=== PATIENT | male | born 1990 | race Caucasian/White ===

== ENCOUNTER 2025-04-27 02:57 | Emergency (ER) | payer OTHER, SELFPAY ==
--- OUTSIDE RECORDS SUMMARY | 2025-04-27 03:00 | XMS_ITS ---
Author Organization [facility] [place] ([address]) Address [address] [place] [address] Care Team Providers Care Electrical Integrator Name Role Phone Emely Batista Primary Care Provider Amanda Loja Unavailable [phone] REASON FOR VISIT Recurrent episodes of hives, nausea, diarrhea since 12/2023. Alpha Gal panel negative. Triple therapy initiated one month ago with no interval episodes. Now carries AIE at all times., Nasal congestionx 1 month causing shortness of breath. Patient reports prior cold. Improved as of today. Medications Medication SIG (Take, Route, Frequency, Duration) Notes Start Date End Date Status Fluticasone Propionate 50 MCG/ACT 2 sprays in each nostril Nasally Twice a day for 30 days Active Montelukast Sodium 10 MG 1 tablet Orally Once a day for 90 days Active Famotidine 20 MG 1 tablet Orally Twic e a day for 30 days Active EPINEPHrine 0.3 MG/0.3ML as directed Inj ection as needed for 30 days Active Mariella Hives 24HR 180 MG 1 tablet Swall ow whole with water; do not take with fruit juices. Orally twice a day Active EPINEPHrine 0.3 MG/0.3ML as directed Injection Active Nasal Washes N/A as directed intranasally Active Encounters Encounter Location Date Provider Diagnosis [facility] [address] [place] [address] 01/19/2025 Amanda Carmona Other urticaria L50.8 ; Personal history of anaphylaxis Z87.892 ; Diarrhea, unspecified R19.7 ; Localized swelling, mass and lump, head R22.0 ; Shortness of breath R06.02 ; Hypertrophy of nasal turbinates J34.3 and Chronic rhinitis J31.0 Assessments Encounter Date Diagnosis (ICD Code) Assessment Notes Treatment Notes Treatment Clinical Notes Section Notes 01/19/2025 Other urticaria (ICD-10 - L50.8) As stated above. Encouraged to avoid NSAIDs, alcohol and opioids as these can exacerbate symptoms. 01/19/2025 Personal history of anaphylaxis (ICD-10 - Z87.892) Geo presents today to establish care after episodes of anaphylaxis without clear cause, see HPI for full details. He has been having ongoing episodes of hives, nausea and diarrhea occurring in the evening and late at night since 12/2023. He reports episodes of facial swelling, no pictures available. He denies lower airway symptoms during episodes. Last episode was this past Friday. He was evaluated by his PCP, LORAINE Batista, given AIE and was told to follow-up at our office. He has never used AIE, treats episodes with Benadryl. No prior history of similar symptoms. He does report known tick bite in past. He denies associated-exercis e. Triple therapy initiated after last visit with no interval episodes at this time. 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 These autoantibodies have been implicated as a causative agent in autoimmune chronic urticaria and atopic dermatitis. Additional laboratory workup for thyroid has yet to be obtained. Consider idiopathic anaphylaxis at this time given negative alpha gal panel. - Normal tryptase, Alpha Gal Panel, CBC, CMP, RF factor, DARIA. He has since resumed red meat intake without interval episodes. - Geo was instructed to carry an AIE at all times. He was educated on indications and proper use. Instructed Denton to carry AIE at all times and administer at the onset of symptoms. He was instructed to notify office and seek evaluation if AIE is used. Standing order for tryptase given to patient to obtain in setting of anaphylaxis. - ImmunoCaps to assess for underlying atopic disease that may be priming Geo's immune system, negative to all aeroallergens. - Recommend continuing triple medication therapy with Mariella and Pepcid BID and Singulair at night in attempt to prevent symptoms from occurring. Refills for Singulair sent. - Discussed with Dr. Cruz at length. Recommend standing order for tryptase and Xolair. Discussed Xolair at length with patient, but he is not interested at this time. Educational handout given and he will continue to consider. - Encouraged to continue to take pictures and journal for triggers. - Geo is to return in 6 weeks further evaluation and management 01/19/2025 Diarrhea, unspecified (ICD-10 - R19.7) As stated above. Today, reporting his stomach feels more upset when nighttime dose of Pepcid is due. Encouraged GI evaluation, which he is slated for in January. 01/19/2025 Localized swelling, mass and lump, head (ICD-10 - R22.0) As stated above. 01/19/2025 Shortness of breath (ICD-10 - R06.02) Geo reports occasional shortness of breath without exertion, worsened with nasal congestion. He reports symptoms have improved at this time. He is concerned for sleep apnea as he snores nightly. He also feels he gasps for air. - Initial spirometry showed normal FVC, FEV1, FEV%. FVL reproducible. Normal lung age. - Continue Flonase for nasal congestion as stated below. - Recommend sleep study, per girlfriend he is scheduled to discuss with PCP at upcoming visit. - Consider ALLEGRA if no improvement at follow-up. 01/19/2025 Hypertrophy of nasal turbinates (ICD-10 - J34.3) Geo reports increased nasal congestion over the past month, otherwise denies all upper airway symptoms. - ImmunoCaps ordered to assess for underlying atopic disease that may be priming Geo's immune system, negative to all aeroallergens. Total IgE 64. 01/19/2025 Chronic rhinitis (ICD-10 - J31.0) As stated above. 01/19/2025 Other Plan Of Treatment Medication Medication Name Sig Start Date Stop Date Notes Fluticasone Propionate 50 MCG/ACT 2 sprays in each nostril Nasally Twice a day for 30 days Montelukast Sodium 10 MG 1 tablet Orally Once a day for 90 days Famotidine 20 MG 1 tablet Orally Twic e a day for 30 days EPINEPHrine 0.3 MG/0.3ML as directed Inj ection as needed for 30 days Mariella Hives 24HR 180 MG 1 tablet Swall ow whole with water; do not take with fruit juices. Orally twice a day Nasal Washes N/A as directed intranasally Treatment Notes Assessment Notes Other urticaria As stated above. Enc ouraged to avoid NSAIDs, alcohol and opioids as these can exacerbate symptoms. Personal history of anaphylaxis Geo presents today to establish care after episodes of anaphylaxis without clear cause, see HPI for full details. He has been having ongoing episodes of hives, nausea and diarrhea occurring in the evening and late at night since 12/2023. He reports episodes of facial swelling, no pictures available. He denies lower airway symptoms during episodes. Last episode was this past Friday. He was evaluated by his PCP, LORAINE Batista, given AIE and was told to follow-up at our office. He has never used AIE, treats episodes with Benadryl. No prior history of similar symptoms. He does report known tick bite in past. He denies associated-exercise. Triple therapy initiated after last visit with no interval episodes at this time. 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 These autoantibodies have been implicated as a causative agent in autoimmune chronic urticaria and atopic dermatitis. Additional laboratory workup for thyroid has yet to be obtained. Consider idiopathic anaphylaxis at this time given negative alpha gal panel. - Normal tryptase, Alpha Gal Panel, CBC, CMP, RF factor, DARIA. He has since resumed red meat intake without interval episodes. - Geo was instructed to carry an AIE at all times. He was educated on indications and proper use. Instructed Geo to carry AIE at all times and administer at the onset of symptoms. He was instructed to notify office and seek evaluation if AIE is used. Standing order for tryptase given to patient to obtain in setting of anaphylaxis. - ImmunoCaps to assess for underlying atopic disease that may be priming Geo's immune system, negative to all aeroallergens. - Recommend continuing triple medication therapy with Mariella and Pepcid BID and Singulair at night in attempt to prevent symptoms from occurring. Refills for Singulair sent. - Discussed with Dr. Cruz at length. Recommend standing order for tryptase and Xolair. Discussed Xolair at length with patient, but he is not interested at this time. Educational handout given and he will continue to consider. - Encouraged to continue to take pictures and journal for triggers. - Geo is to return in 6 weeks further evaluation and management Diarrhea, unspecified As stated above. T moni, reporting his stomach feels more upset when nighttime dose of Pepcid is due. Encouraged GI evaluation, which he is slated for in January. Localized swelling, mass and lump, head As stated above. Shortness of breath Geo reports occasional shortness of breath without exertion, worsened with nasal congestion. He reports symptoms have improved at this time. He is concerned for sleep apnea as he snores nightly. He also feels he gasps for air. - Initial spirometry showed normal FVC, FEV1, FEV%. FVL reproducible. Normal lung age. - Continue Flonase for nasal congestion as stated below. - Recommend sleep study, per girlfriend he is scheduled to discuss with PCP at upcoming visit. - Consider ALLEGRA if no improvement at follow-up. Hypertrophy of nasal turbinates Geo reports increased nasal congestion over the past month, otherwise denies all upper airway symptoms. - ImmunoCaps ordered to assess for underlying atopic disease that may be priming Geo's immune system, negative to all aeroallergens. Total IgE 64. Chronic rhinitis As stated above. Next Appt Details Follow Up: 6 Weeks, Reason: Evaluation and Management Provider Name:Amanda oden, 06/01/2025 03:30:00 PM, [address] [facility], [address] [place] [address], [id number], Progress Notes * Geo MARIEDOB:1990 (34 yo M)Acc No.[id number]:01/19/2025 Progress Notes Patient: Geo BELTRAN Provider: AMANDA CarballoP-BC :1990 A ge:34 Y S ex:Male Date:01/19/2025 [facility] Pcp:Emely Batista Subjective: * Chief Complaints: * 1 . Recurrent episodes of hives, nausea, diarrhea since 12/2023. Alpha Gal panel negative. Triple therapy initiated one month ago with no interval episodes. Now carries AIE at all times.. 2. Nasal congestion x 1 month causing shortness of breath. Patient reports prior cold. Improved as of today.. * HPI: * Introduction: HPI: Keagan phil Marie, a 34 year-ol WM with a history of idiopathic anaphylaxis here today for anaphylaxis follow-up. He is with his girlfriend, Viola, for today's visit. Denton reports ongoing hives since 10/2023 when he was at work and noticed a rash on arm with associated itching. Symptoms resolved within 3-4 hours spontaneously. He was on a 7 day antibiotics for Chlamydia at that time. Symptoms returned in 12/2023. This time, symptoms were more severe.Within 1-2 hours of eating, he began to feel warm and has uneasy stomach then had a loose, diarrhea BM followed shortly after by generalized hives lasting approximately 3-4 hours.He also reported a little swelling in face and lips. He was treated at urgent care with steroid injection and antibiotics with improvement. Of note, he passed out after steroid injection. In 03/2024, he had vomiting and diarrhea, felt warm and had hives with associated swelling to cheeks. He took Benadryl and symptoms resolved within 3-4 hours. He was evaluated by AMBULANCE OPERATIONS SUPERVISOR Emely Fulton in 04/2024, prescribed AIE and OCS to have on hand with referral here. They have never used since symptoms resolve within 3-4 hours. Per Denton, he did not have insurance so was not previously evaluated. H param does not feel symptoms occurred in June or July 2024. But feels they are becoming more intense since August 2024 and are occurring every 3 weeks. In 09/2024, he had diarrhea and vomiting at same time and convulsed a little bit per girlfriend.He usually treats with Benadryl and all symptoms resolve within 4 hours. The alast episode of vomiting, diarrhea na dhives occurred this past Friday. At times, he started having hives before BM, but feels hives is always associated with nausea and diarrhea. He reports all episodes have occurred in the evening, around 4-6 pm. The episode occurred around 11pm and this past Friday occrrued around midnight. He has taken Mariella intermittently, started daily since 09/2024 episode as it was intense. He feels swelling happened more when he was not on Mariella. Denies swelling since 04/2024. No pictures of reported swelling. Laboratory workup after initial visit showed normal tryptase, alpha gal panel negative. Notable for thyroglobulin antibody elevation and elevated anti-IgE antibodies. Erin virgen denies recent travel, illness, parasitic infections. He reports chlamydia diagnosis in 12/2023, treated with 7 days antibiotics. Per external med rec, was treated with Azithromycin. He was asymptomatic for chlamydia, but was tested prior to dating his new girlfriend. He feels he may have had chlamydia back in October prior to symptom onset. He eats an unrestricted diet, consuming some sort of red meat daily if not multiple times throughout day. He feels he may have been bit by a tick at some point as he is outside a lot with his hobbies of four-wheeling and other recreational activitities. He reports NSAID use for back pain, approximately 3 times per month. He reports prior alcohol use of 15 beers 3 times per week, has stopped all alcohol within the past 6 months. He denies opioid use. He admits to daily marijuana use. Keagan villarreal reports increased nasal congestion over the past month, otherwise denies all upper airway symptoms. He is concerned for sleep apnea as he snores nightly. He also feels he gasps for air. He does reports occasional shortness of breath without exertion, worsened due to ongoing nasal congestion. Spireomtry at initial visit WNL. Today, reporting nasal congestion is improving. His father of non-hodgkin's lymphoma and his mother has a history of Crohn's disease.He denies a history of physician-diagnosed allergic rhinitis, recurrent sinusitis or otitis media, recurrent pneumonia, asthma/RAD, eczema, food allergies, urticaria/angioedema, medication allergies, contact dermatitis, latex allergy, eosinophilic esophagitis or stinging insect hypersensitivity. Today, he reports no fevers, chills, night sweats or other constitutional symptoms. * ROS: A LLERGY: Positive p er the HPI and history, otherwise unremarkable.? S PECIAL SENSES: Positve for n one. C ONSTITUTIONAL: weakness Y es. P ositive for n one. ? E NT: Positive p er the HPI and history, otherwise unremarkable.? R ESPIRATORY: shortness of breath Y es. P ositive p er the HPI and history, otherwise unremakable. O PHTHALMOLOGY: Positive for p er the HPI and history, otherwise unremarkable. E NDOCRINOLOGY: Positive for n one. C ARDIOLOGY: shortness of breath Y es. P ositive for n one. G ASTROENTEROLOGY: abdominal pain Y es. v omiting Y es. d iarrhea?Yes. P ositive for n one. U ROLOGY: Positive for n one. D ERMATOLOGY: hives (urticaria) Y es. P ositive for p er the HPI and history, otherwise unremakable. N EUROLOGY: Positive for n one. H EMATOLOGY/LYMPH: Positive for n one. M USCULOSKELETAL: Positive for n one. P SYCHOLOGY: Positive for n one. A ll other review of systems per the HPI and history, otherwise unremarkable. * Medical History: * Medications: T aking Fluticasone Propionate 50 MCG/ACT Suspension 2 sprays in each nostril Nasally Twice a day , Taking Famotidine 20 MG Tablet 1 tablet Orally Twice a day , Taking Montelukast Sodium 10 MG Tablet 1 tablet Orally Once a day , Taking Mariella Hives 24HR 180 MG Tablet 1 tablet Swallow whole with water; do not take with fruit juices. Orally twice a day , Taking EPINEPHrine 0.3 MG/0.3ML Solution Auto-injector as directed Injection as needed , Taking Nasal Washes N/A 1 quart of sterilized tap water or distilled water, 1 tsp NaCl, 1 pinch of baking soda as directed intranasally , Taking EPINEPHrine 0.3 MG/0.3ML Solution Auto-injector as directed Injection Objective: * Vitals: * Examination: G eneral examination: General appearance: p leasant, well-developed, well-nourished, in no apparent distress, speaking in full sentences. HEENT: c onjunctiva are normal bilaterally, TMs without evidence of acute infection, turbinates 2+ swollen and pale inferiorly bilaterally, clear rhinorrhea is present, no polyps noted, no septal perforation, posterior oropharynx is clear without exudates, erythema on pharyngeal wall, no exudates, no tongue swelling, and uvula is midline. Oral cavity: n ormal, no lesions. Breasts : n ot performed. Heart: R RR, S1-S2, no murmurs, no rubs, no gallops. Lungs: c lear to auscultation in all lung kat, no wheezes, no crackles, no rhonchi. Neurologic exam: u nremarkable. Skin: n ormal, no visible rash, dermatographism, urticaria, angioedema. Back: n ormal. Extremities: n ormal ROM, no clubbing, no cyanosis, no edema. Genitalia: n ot performed. Assessment: * Assessment: 1. P ersonal history of anaphylaxis - Z87.892 (Primary) 2 . O ther urticaria - L50.8 3 . D iarrhea, unspecified - R19.7 4 . L ocalized swelling, mass and lump, head - R22.0 5 . S hortness of breath - R06.02 & #160; 6 . H ypertrophy of nasal turbinates - J34.3 7 . C hronic rhinitis - J31.0 Plan: * Treatment: 2. O ther urticaria Continue Famotidine Tablet, 20 MG, 1 tablet, Orally, Twice a day, 30 days, 60 Tablet, Refills 0;?Continue Montelukast Sodium Tablet, 10 MG, 1 tablet, Orally, Once a day, 90 days, 90 Tablet, Refills 0; C ontinue Mariella Hives 24HR Tablet, 180 MG, 1 tablet Swallow whole with water; do not take with fruit juices., Orally, twice a day. Notes: As stated above. Encouraged to avoid NSAIDs, alcohol and opioids as these can exacerbate symptoms. 3. D iarrhea, unspecified Notes: As stated above. Today, reporting his stomach feels more upset when nighttime dose of Pepcid is due. Encouraged GI evaluation, which he is slated for in January. 4. L ocalized swelling, mass and lump, head Notes: As stated above. 5. S hortness of breath Notes: Geo reports occasional shortness of breath without exertion, worsened with nasal congestion. He reports symptoms have improved at this time. He is concerned for sleep apnea as he snores nightly. He also feels he gasps for air. - Initial spirometry showed normal FVC, FEV1, FEV%. FVL reproducible. Normal lung age. - Continue Flonase for nasal congestion as stated below. - Recommend sleep study, per girlfriend he is scheduled to discuss with PCP at upcoming visit. - Consider ALLEGRA if no improvement at follow-up. 6. H ypertrophy of nasal turbinates Continue Fluticasone Propionate Suspension, 50 MCG/ACT, 2 sprays in each nostril, Nasally, Twice a day, 30 days, 1, Refills 0; C ontinue Nasal Washes 1 quart of sterilized tap water or distilled water, 1 tsp NaCl, 1 pinch of baking soda, N/A, as directed, intranasally. Notes: Geo reports increased nasal congestion over the past month, otherwise denies all upper airway symptoms. - ImmunoCaps ordered to assess for underlying atopic disease that may be priming Geo's immune system, negative to all aeroallergens. Total IgE 64. 7. C hronic rhinitis Notes: As stated above. * Procedure Codes: G 8427 DOC MEDS VERIFIED W/[place], [address] Amanda Carmona - Incident-to * Preventive Medicine: Counseling: D iet S tart food avoidance: beef, pork and silva. E xercise C ontinue activity as usual. M edication instruction: W atch for side effects of prescribed medications, Nasal steroid/antihistamine instruction: avoid septum, Reviewed boxed warning on prescribed medication, Singulair (montelukast: serious neuropsychiatric events have been reported in patients; monitor for neuropsychiatric symptoms. E ducation: G ENERAL EDUCATION: Our staff spent an additional 30 minutes in direct contact with the patient educating them on their current diagnoses and proper treatment and prevention of symptoms and the proper use of medications, Our staff discussed pulmonary function testing and results with the patient/family, HIVES EDUCATION:, Avoid opioid-containing analgesics, Avoid excessive alcohol use, Avoid NSAIDs (non-steroidal anti-inflammatories) - list provided, MEDICATION EDUCATION:, Reviewed boxed warning on prescribed medication, Singulair (montelukast: serious neuropsychiatric events have been reported in patients; monitor for neuropsychiatric symptoms. P atient education material sent to portal? Y es C are goal follow up plan Above Normal BMI Follow-up D ietary management education, guidance, and counseling B P Management: FIRST HYPERTENSIVE BP READING FOLLOW-UP PLAN: F ollow-up 1 month REFERRAL TO ALTERNATIVE / PRIMARY CARE PROVIDER: R eferral to general physician * Follow Up: 6 Weeks (Reason: Evaluation and Management) * Billing Information: * Visit Code: 05907 Office Visit, Est Pt., Level 4. Modifiers: 25 * Procedure Codes: G8427 DOC MEDS VERIFIED W/[place]. [address] Amanda Carmona - Incident-to. * Electronic signature of JOSÉ Braun on 04/27/2025 at 03:00 AM CDT Sign off status: Pending * Provider: JOSÉ Carballo Date: 0 01/19/2025 Generated for Anali gutierrez/Twan/Saraysmitting on: 0 04/27/2025 03:00 AM CDT History and Physical Notes * HPI (History of Present Illness) Category Sub-Category Detail Notes Category Not es *Introduction HPI: Geo Marie, a 34 year-ol WM with a history of idiopathic anaphylaxis here today for anaphylaxis follow-up. He is with his girlfriend, Viola, for today's visit. Geo reports ongoing hives since 10/2023 when he was at work and noticed a rash on arm with associated itching. Symptoms resolved within 3-4 hours spontaneously. He was on a 7 day antibiotics for Chlamydia at that time. Symptoms returned in 12/2023. This time, symptoms were more severe. Within 1-2 hours of eating, he began to feel warm and has uneasy stomach then had a loose, diarrhea BM followed shortly after by generalized hives lasting approximately 3-4 hours. He also reported a little swelling in face and lips. He was treated at urgent care with steroid injection and antibiotics with improvement. Of note, he passed out after steroid injection. In 03/2024, he had vomiting and diarrhea, felt warm and had hives with associated swelling to cheeks. He took Benadryl and symptoms resolved within 3-4 hours. He was evaluated by AMBULANCE OPERATIONS SUPERVISOR Emely Fulton in 04/2024, prescribed AIE and OCS to have on hand with referral here. They have never used since symptoms resolve within 3-4 hours. Per Denton, he did not have insurance so was not previously evaluated. He does not feel symptoms occurred in June or July 2024. But feels they are becoming more intense since August 2024 and are occurring every 3 weeks. In 09/2024, he had diarrhea and vomiting at same time and convulsed a little bit per girlfriend. He usually treats with Benadryl and all symptoms resolve within 4 hours. The alast episode of vomiting, diarrhea na dhives occurred this past Friday. At times, he started having hives before BM, but feels hives is always associated with nausea and diarrhea. He reports all episodes have occurred in the evening, around 4-6 pm. The episode occurred around 11pm and this past Friday occrrued around midnight. He has taken Mariella intermittently, started daily since 09/2024 episode as it was intense. He feels swelling happened more when he was not on Mariella. Denies swelling since 04/2024. No pictures of reported swelling. Laboratory workup after initial visit showed normal tryptase, alpha gal panel negative. Notable for thyroglobulin antibody elevation and elevated anti-IgE antibodies. He denies recent travel, illness, parasitic infections. He reports chlamydia diagnosis in 12/2023, treated with 7 days antibiotics. Per external med rec, was treated with Azithromycin. He was asymptomatic for chlamydia, but was tested prior to dating his new girlfriend. He feels he may have had chlamydia back in October prior to symptom onset. He eats an unrestricted diet, consuming some sort of red meat daily if not multiple times throughout day. He feels he may have been bit by a tick at some point as he is outside a lot with his hobbies of four-wheeling and other recreational activitities. He reports NSAID use for back pain, approximately 3 times per month. He reports prior alcohol use of 15 beers 3 times per week, has stopped all alcohol within the past 6 months. He denies opioid use. He admits to daily marijuana use. [place] reports increased nasal congestion over the past month, otherwise denies all upper airway symptoms. He is concerned for sleep apnea as he snores nightly. He also feels he gasps for air. He does reports occasional shortness of breath without exertion, worsened due to ongoing nasal congestion. Spireomtry at initial visit WNL. Today, reporting nasal congestion is improving. His father of non-hodgkin's lymphoma and his mother has a history of Crohn's disease. He denies a history of physician-diagnosed allergic rhinitis, recurrent sinusitis or otitis media, recurrent pneumonia, asthma/RAD, eczema, food allergies, urticaria/angioedema, medication allergies, contact dermatitis, latex allergy, eosinophilic esophagitis or stinging insect hypersensitivity. Today, he reports no fevers, chills, night sweats or other constitutional symptoms Examination Category Sub-Category Detail Notes Category Not es General examination HEENT: conjunctiva are normal bilaterally, TMs without evidence of acute infection, turbinates 2+ swollen and pale inferiorly bilaterally, clear rhinorrhea is present, no polyps noted, no septal perforation, posterior oropharynx is clear without exudates, erythema on pharyngeal wall, no exudates, no tongue swelling, and uvula is midline Heart: RRR, S1-S2, no murmu rs, no rubs, no gallops Lungs: clear to auscultatio n in all lung kat, no wheezes, no crackles, no rhonchi Extremities: normal ROM, no clubb ing, no cyanosis, no edema General appearance: pleasant, well-devel oped, well-nourished, in no apparent distress, speaking in full sentences Skin: normal, no visible r prerna, dermatographism, urticaria, angioedema Neurologic exam: unremarkable Oral cavity: normal, no lesions Breasts : not performed Back: normal Genitalia: not performed
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
--- OUTSIDE RECORDS SUMMARY | 2025-04-27 03:00 | XMS_ITS | Patient Health Record ---
Author Organization [facility] ([address]) Address [address] [address] Care Team Providers Care Cereal Maker Name Role Phone Emely Batista Primary Care Provider UnavailAmanda Willis Unavailable [phone] Moshe Cruz Unavailable [phone] Tobias Shrestha Unavailable [phone] Allergies No Known Allergies Results Component Value Reference Range Notes -F027 Beef Reviewed date:11/24/2024 10:23:31 AM Interpretation:Normal Performing Lab:[facility] [id number], Phone - [phone], Director - [facility] Notes/Report: L226-ApK Beef <0.10 Class 0 kU/L -F026 Pork Reviewed date:11/24/2024 10:22:54 AM Interpretation:Normal Performing Lab:[facility] [address] [id number], Phone - [phone], Director - PhDGood [facility]aritan Medical Centeruti Notes/Report: L872-AzZ Pork <0.10 Class 0 kU/L -F088 Silva Reviewed date:11/24/2024 10:23:03 AM Interpretation:Normal Performing Lab:[facility] [id number], Phone - [phone], Director - PhDGood [facility]aritan Medical Centeruti Notes/Report: J120-TbR Silva <0.10 Class 0 kU/L -Chronic Urticaria -- Anti-I gE ([id number]) Reviewed date:12/08/2024 02:34:25 PM Interpretation:Abnormal Performing Lab:[facility] [employer], [address] [id number], Phone - [phone], Director - Suleman Notes/Report: Anti-IgE* See below: Normal ELEVATED This ALEXA measures IgG antibodies specific for IgE. A result of normal indicates that the level of IgG anti-IgE antibodies is similar to that seen in a population of healthy individuals. A result of elevated indicates an increased level of IgG anti-IgE antibodies compared to healthy individuals. These autoantibodies have been implicated as a causative agent in autoimmune chronic urticaria and atopic dermatitis. FLAG Interpretation: A = Abnormal, H = High, L = Low -Tryptase ([id number]) Reviewed date:11/23/2024 07:32:05 AM Interpretation:Normal Performing Lab:[facility], [address] [place] [id number], Phone - [phone], Director - Armando Notes/Report: Tryptase 4.5 2.2-13.2 ug/L -CU Panel ([id number]) Reviewed date:12/09/2024 01:59:59 PM Interpretation:Abnormal Performing Lab:[facility], [address] [place] [id number], Phone - [phone], Director - Lona Notes/Report: Glucose 81 70-99 mg/dL BUN 11 6-20 mg/dL Creatinine 1.09 0.76-1.27 mg/dL eGFR 91 >59 mL/min/1.73 BUN/Creatinine Ratio 10 9-20 Sodium 139 134-144 mmol/L Potassium 4.3 3.5-5.2 mmol/L Chloride 101 96-106 mmol/L Carbon Dioxide, Total 25 20-29 mmol/L Calcium 9.0 8.7-10.2 mg/dL Protein, Total 7.1 6.0-8.5 g/dL Albumin 4.5 4.1-5.1 g/dL Globulin, Total 2.6 1.5-4.5 g/dL Bilirubin, Total <0.2 0.0-1.2 mg/dL Alkaline Phosphatase 82 44-121 IU/L AST (SGOT) 19 0-40 IU/L ALT (SGPT) 26 0-44 IU/L Immunoglobulin A, Qn, Serum 214 90-386 mg/dL Immunoglobulin E, Total 64 6-495 IU/mL TSH 1.860 0.450-4.500 uIU/mL DARIA Direct Negative Negative Rheumatoid Factor (RF) <10.0 <14.0 IU/mL Thyroid Peroxidase (TPO) Ab 10 0-34 IU/mL Thyroglobulin Antibody 1.1 0.0-0.9 IU/mL Thyroglobulin Antibody measured by [employer] . It should be noted that the presence of thyroglobulin antibodies may not be pathogenic nor diagnostic, especially at very low levels. The assay pretzel packer has found that four percent of individuals without evidence of thyroid disease or autoimmunity will have positive TgAb levels up to 4 IU/mL. Deamidated Gliadin Abs, IgA 4 0-19 units Negative 0 - 19 Weak Positive 20 - 30 Moderate to Strong Positive >30 Deamidated Gliadin Abs, IgG 3 0-19 units Negative 0 - 19 Weak Positive 20 - 30 Moderate to Strong Positive >30 t-Transglutaminase (tTG) IgA <2 0-3 U/mL Negative 0 - 3 Weak Positive 4 - 10 Positive >10 . Tissue Transglutaminase (tTG) has been identified as the endomysial antigen. Studies have demonstr- ated that endomysial IgA antibodies have over 99% specificity for gluten sensitive enteropathy. t-Transglutaminase (tTG) IgG 2 0-5 U/mL Negative 0 - 5 Weak Positive 6 - 9 Positive >9 Endomysial Antibody IgA Negative Negative WBC 7.5 3.4-10.8 x10E3/uL RBC 5.09 4.14-5.80 x10E6/uL Hemoglobin 13.7 13.0-17.7 g/dL Hematocrit 41.8 37.5-51.0 % MCV 82 79-97 fL MCH 26.9 26.6-33.0 pg MCHC 32.8 31.5-35.7 g/dL RDW 12.7 11.6-15.4 % Platelets 390 150-450 x10E3/uL Neutrophils 58 Not Estab. % Lymphs 33 Not Estab. % Monocytes 6 Not Estab. % Eos 2 Not Estab. % Basos 1 Not Estab. % Neutrophils (Absolute) 4.3 1.4-7.0 x10E3/uL Lymphs (Absolute) 2.5 0.7-3.1 x10E3/uL Monocytes(Absolute) 0.5 0.1-0.9 x10E3/uL Eos (Absolute) 0.2 0.0-0.4 x10E3/uL Baso (Absolute) 0.1 0.0-0.2 x10E3/uL Immature Granulocytes 0 Not Estab. % Immature Grans (Abs) 0.0 0.0-0.1 x10E3/uL Sedimentation Rate-Westergren 10 0-15 mm/hr Specific [place] 1.012 1.005-1.030 pH 7.0 5.0-7.5 Urine-Color Yellow Yellow Appearance Clear Clear WBC Esterase Negative Negative Protein Negative Negative/Trace Glucose Negative Negative Ketones Negative Negative Occult Blood Negative Negative Bilirubin Negative Negative Urobilinogen,Semi-Qn 0.2 0.2-1.0 mg/dL Nitrite, Urine Negative Negative Microscopic Examination Micr oscopic follows if indicated. Microscopic Examination See below: Micr oscopic was indicated and was performed. WBC None seen 0 - 5 /hpf RBC None seen 0 - 2 /hpf Epithelial Cells (non renal) None seen 0 - 10 /hpf Casts None seen None seen /lpf Bacteria None seen None seen/Few -Chronic Urticaria -- Autoim mune IgE receptor antibody ([id number]) Reviewed date:11/30/2024 04:12:51 PM Interpretation:Normal Performing Lab:[facility], [address] [place] [address], [address] [id number], Phone - [phone], Director - PhDBCNeil Notes/Report: cu index 7.1 <10 The CU Index(R) test is the second generation Functional Anti-FceR test. Patients with a CU Index(R) greater than or equal to 10 have basophil reactive factors in their serum which supports an autoimmune basis for disease. *This test was developed and its performance characteristics determined by [facility]. It has not been cleared or approved by the U.S. Food and Drug Administration. FLAG Interpretation: A = Abnormal, H = High, L = Low Spirometry Reviewed date:11/18/2024 12:36:35 PM Interpretation:Normal Performing Lab: Notes/Report: Normal SpiroPreBronchodilator_FVC 6.16 SpiroPreBronchodilator_FVC 5.75 SpiroPostBronchodilator_FEF 25_75 0 SpiroPostBronchodilator_FEF 25_75 0 SpiroPreBronchodilator_FEF2 5_75 4.59 SpiroPreBronchodilator_FEF2 5_75 4.51 SpiroPreBronchodilator_FEV1 4.71 SpiroPreBronchodilator_FEV1 4.59 SpiroPrecentPredictionPost_ HTO88_79 0 SpiroPrecentPredictionPost_ MSA39_73 0 [facility]Post_ FEV1 0 Spi[facility]Precent[facility]ictionPost_ FEV1 0 SpiroPrecentPredictionPost_ FEV1_OVER_FVC 0 SpiroPrecentPredictionPost_ FEV1_OVER_FVC 0 SpiroPrecentPredictionPost_ FVC 0 SpiroPrecentPredictionPost_ FVC 0 SpiroPrecentPredictionPre_F EF25_75 101.5 SpiroPrecentPredictionPre_F EF25_75 99.8 SpiroPrecentPredictionPre_F EV1 105.8 SpiroPrecentPredictionPre_F EV1 103.1 SpiroPrecentPredictionPre_F EV1_OVER_FVC 93.5 SpiroPrecentPredictionPre_F EV1_OVER_FVC 97.5 SpiroPrecentPredictionPre_F VC 113.2 SpiroPrecentPredictionPre_F VC 105.7 SpiroPredicted_FEF25_75 4.52 SpiroPredicted_FEF25_75 4.52 SpiroPreBronchodilator_FEV1 _OVER_FVC 76.55 SpiroPreBronchodilator_FEV1 _OVER_FVC 79.81 SpiroPreBronchodilator_PEF 5.62 SpiroPreBronchodilator_PEF 10.1 SpiroPostBronchodilator_FVC 0 SpiroPostBronchodilator_FVC 0 SpiroPostBronchodilator_FEV 1 0 SpiroPostBronchodilator_FEV 1 0 SpiroPostBronchodilator_FEV 1_OVER_FVC 0 SpiroPostBronchodilator_FEV 1_OVER_FVC 0 SpiroPostBronchodilator_PEF 0 SpiroPostBronchodilator_PEF 0 SpiroPredicted_FVC 5.44 SpiroPredicted_FVC 5.44 SpiroPredicted_FEV1 4.45 SpiroPredicted_FEV1 4.45 SpiroPredicted_FEV1_OVER_FV C 81.88 SpiroPredicted_FEV1_OVER_FV C 81.88 SpiroPredicted_PEF 9.77 SpiroPredicted_PEF 9.77 Spirometry Reviewed date:11/18/2024 12:36:35 PM Interpretation:Normal Performing Lab: Notes/Report: Normal SpiroPreBronchodilator_FVC 6.16 SpiroPreBronchodilator_FVC 5.75 SpiroPostBronchodilator_FEF 25_75 0 SpiroPostBronchodilator_FEF 25_75 0 SpiroPreBronchodilator_FEF2 5_75 4.59 SpiroPreBronchodilator_FEF2 5_75 4.51 SpiroPreBronchodilator_FEV1 4.71 SpiroPreBronchodilator_FEV1 4.59 SpiroPrecentPredictionPost_ RTZ95_48 0 SpiroPrecentPredictionPost_ IYG10_72 0 SpiroPrecentPredictionPost_ FEV1 0 SpiroPrecentPredictionPost_ FEV1 0 SpiroPrecentPredictionPost_ FEV1_OVER_FVC 0 SpiroPrecentPredictionPost_ FEV1_OVER_FVC 0 SpiroPrecentPredictionPost_ FVC 0 SpiroPrecentPredictionPost_ FVC 0 SpiroPrecentPredictionPre_F EF25_75 101.5 SpiroPrecentPredictionPre_F EF25_75 99.8 SpiroPrecentPredictionPre_F EV1 105.8 SpiroPrecentPredictionPre_F EV1 103.1 SpiroPrecentPredictionPre_F EV1_OVER_FVC 93.5 SpiroPrecentPredictionPre_F EV1_OVER_FVC 97.5 SpiroPrecentPredictionPre_F VC 113.2 SpiroPrecentPredictionPre_F VC 105.7 SpiroPredicted_FEF25_75 4.52 SpiroPredicted_FEF25_75 4.52 SpiroPreBronchodilator_FEV1 _OVER_FVC 76.55 SpiroPreBronchodilator_FEV1 _OVER_FVC 79.81 SpiroPreBronchodilator_PEF 5.62 SpiroPreBronchodilator_PEF 10.1 SpiroPostBronchodilator_FVC 0 SpiroPostBronchodilator_FVC 0 SpiroPostBronchodilator_FEV 1 0 SpiroPostBronchodilator_FEV 1 0 SpiroPostBronchodilator_FEV 1_OVER_FVC 0 SpiroPostBronchodilator_FEV 1_OVER_FVC 0 SpiroPostBronchodilator_PEF 0 SpiroPostBronchodilator_PEF 0 SpiroPredicted_FVC 5.44 SpiroPredicted_FVC 5.44 SpiroPredicted_FEV1 4.45 SpiroPredicted_FEV1 4.45 SpiroPredicted_FEV1_OVER_FV C 81.88 SpiroPredicted_FEV1_OVER_FV C 81.88 SpiroPredicted_PEF 9.77 SpiroPredicted_PEF 9.77 -Respiratory Allergens w/Tot al IgE Area 8 Reviewed date:11/24/2024 10:22:42 AM Interpretation:Normal Performing Lab:[facility], [address] [place] [id number], Phone - [phone], Director - Lona Notes/Report: Class Description Levels of Specific IgE Class Description of Class ----- < 0.10 0 Negative 0.10 - 0.31 0/I Equivocal/Low 0.32 - 0.55 I Low 0.56 - 1.40 II Moderate 1.41 - 3.90 III High 3.91 - 19.00 IV Very High 19.01 - 100.00 V Very High >100.00 Very High S135-PmA D pteronyssinus <0.10 Class 0 kU/L E822-MmV D farinae <0.10 Class 0 kU/L B393-PpZ Cat Dander <0.10 Class 0 kU/L T537-McC Dog Dander <0.10 Class 0 kU/L S266-VgR Mouse Urine <0.10 Class 0 kU/L L040-VuP Berm[place] Grass <0.10 Class 0 kU/L Z935-OkL Dwayne Grass <0.10 Class 0 kU/L S435-YwK Cockroach, Uzbek <0.10 Class 0 kU/L E865-DmG Penicillium chrysogen <0.10 Class 0 kU/L T587-BsP Cladosporium herbarum <0.10 Class 0 kU/L H439-BiR Aspergillus fumigatus <0.10 Class 0 kU/L W487-QmB Alternaria alternata <0.10 Class 0 kU/L T840-DsM Maple/[place] <0.10 Class 0 kU/L Q587-KrO [place], Mountain <0.10 Class 0 kU/L F066-FeR [place], White <0.10 Class 0 kU/L B599-IxS Elm, Prydein[place] <0.10 Class 0 kU/L Q583-OeV Ross[place] <0.10 Class 0 kU/L B073-QeE Maple [place] <0.10 Class 0 kU/L B184-VaJ [place] <0.10 Class 0 kU/L O772-EmI Oren, White <0.10 Class 0 kU/L V256-OxA Pecan, Island <0.10 Class 0 kU/L D793-NqM [place] <0.10 Class 0 kU/L A123-DcF Ragweed, Short <0.10 Class 0 kU/L Z835-XkK Thistle, Moroccan <0.10 Class 0 kU/L V506-IwD Pigweed, Common <0.10 Class 0 kU/L M876-LuO Rough [place] <0.10 Class 0 kU/L E580-SiG Alpha-Gal Reviewed date:11/24/2024 12:51:34 PM Interpretation:Normal Performing Lab:[facility], [address] [place] [id number], Phone - [phone], Director - Lona Notes/Report: G827-TrP Alpha-Gal <0.10 Class 0 kU/L Reason For Referral No Information Medications Medication SIG (Take, Route, Frequency, Duration) Notes Start Date End Date Status Famotidine 20 MG 1 tablet Orally Twic e a day for 30 days Active Montelukast Sodium 10 MG 1 tablet Orally Once a day for 90 days Active Fluticasone Propionate 50 MCG/ACT 2 sprays in each nostril Nasally Twice a day for 30 days Active Mariella Hives 24HR 180 MG 1 tablet Swall ow whole with water; do not take with fruit juices. Orally twice a day Active EPINEPHrine 0.3 MG/0.3ML as directed Inj ection as needed for 30 days Active Nasal Washes N/A as directed intranasally Active EPINEPHrine 0.3 MG/0.3ML as directed Injection Active Social History Tobacco Use: Social History Observation Description Date Details (start date - stop date) Never Smoker NA - NA Tobacco Control (Standard) Question Answer Notes Tobacco use: Nonsmoker Problems Problem Type SNOMED Code ICD Code Onset Dates Problem Status W/U Status Risk Notes Problem Chronic rhinitis (J31.0) Active confirmed Problem Anaphylaxis (10207388) Personal history of anaphylaxis (Z87.892) Active confirmed Problem Gastro-esophagea l reflux disease without esophagitis (447437096) Gastro-esophage al reflux disease without esophagitis (K21.9) Active confirmed Vital Signs Blood pressure diastolic 73 mm Hg 02/09/2025 Oximetry 99 % 02/09/2025 Height 71 in 02/09/2025 Blood pressure systolic 131 mm Hg 02/09/2025 Weight 197.4 lbs 02/09/2025 BMI 27.53 kg/m2 02/09/2025 Encounters Encounter Location Date Provider Diagnosis [facility] [address] [address] 11/18/2024 Amanda Carmona Other urticaria L50. 8 ; Personal history of anaphylaxis Z87. ; Diarrhea, unspecified R19.7 ; Localized swelling, mass and lump, head R22.0 ; Shortness of breath R06.02 ; Hypertrophy of nasal turbinates J34.3 and Chronic rhinitis J31.0 [facility] [address] [address] 12/15/2024 Amanda Carmona Other urticaria L50. 8 ; Personal history of anaphylaxis Z87.892 ; Diarrhea, unspecified R19.7 ; Localized swelling, mass and lump, head R22.0 ; Shortness of breath R06.02 ; Hypertrophy of nasal turbinates J34.3 and Chronic rhinitis J31.0 [facility] [address] [place] [address] 02/09/2025 Amanda Carmona Other urticaria L50. 8 ; Personal history of anaphylaxis Z87.892 ; Diarrhea, unspecified R19.7 ; Gastro-esophageal reflux disease without esophagitis K21.9 ; Localized swelling, mass and lump, head R22.0 ; Shortness of breath R06.02 ; Hypertrophy of nasal turbinates J34.3 ; Chronic rhinitis J31.0 and Elevated blood-pressure reading, without diagnosis of hypertension R03.0 [facility] [address] [place] [address] 11/29/2024 Amanda Carmona [address] [address] 12/02/2024 Amanda Carmona Personal history of anaphylaxis Z87.[address] [address] 12/01/2024 Amanda Carmona [address] [address] 12/01/2024 Amadna Carmona [address] [address] 12/01/2024 Amanda Carmona [address] [address] 12/02/2024 Amanda Carmona [address] [address] 12/13/2024 Amanda Carmona [address] [address] 01/19/2025 Amanda Carmona Assessments Encounter Date Diagnosis (ICD Code) Assessment Notes Treatment Notes Treatment Clinical Notes Section Notes 11/18/2024 Other urticaria (ICD-10 - L50.8) As stated above. Encouraged to avoid NSAIDs, alcohol and opioids as these can exacerbate symptoms. 11/18/2024 Personal history of anaphylaxis (ICD-10 - Z87.892) [...] bite in past. He denies associated-exercis e. - Will send laboratory work as above for further investigation. Consider idiopathic anaphylaxis vs alpha gal syndrome vs exercise induced anaphylaxis vs other. - Skin testing unable to be performed today due to Mariella use last night. Will order ImmunoCaps to beef, pork and silva. - Geo was instructed to carry an AIE at all times. He was educated on indications and proper use. Instructed Geo to carry AIE at all times and administer at the onset of symptoms. He was instructed to notify office and seek evaluation if AIE is used. Refill sent for AIE. - Will order ImmunoCaps to assess for underlying atopic disease that may be priming Geo's immune system, see plan below. - Recommend triple medication therapy with Mariella and Pepcid BID and Singulair at night in attempt to prevent symptoms from occurring. - Recommend avoiding red meat in the interim given concerns for alpha-gal. - Encouraged to continue to take pictures and journal for triggers. - Geo is to return in 4 weeks for laboratory review and further evaluation and management 12/02/2024 Personal history of anaphylaxis (ICD-10 - Z87.892) 12/15/2024 Other urticaria (ICD-10 - L50.8) As stated above. Encouraged to avoid NSAIDs, alcohol and opioids as these can exacerbate symptoms. 12/15/2024 Personal history of anaphylaxis (ICD-10 - Z87.892) [...] in 6 weeks further evaluation and management 02/09/2025 Other urticaria (ICD-10 - L50.8) As stated above. Encouraged to avoid NSAIDs, alcohol and opioids as these can exacerbate symptoms. 02/09/2025 Personal history of anaphylaxis (ICD-10 - Z87.892) Geo presents for follow-up after episodes of anaphylaxis without clear cause, [...] denies associated-exercis e. Triple therapy initiated after [employer] visit with no interval episodes at this [...] AIE is used. Standing order for tryptase to be obtained in setting of anaphylaxis on hand. - ImmunoCaps ordered to assess for underlying atopic disease that may be priming Geo's immune system, negative to all aeroallergens. - Recommend continuing Mariella and Pepcid BID. No longer taking Singulair due to perceived mood disturbances. No interval episodes off Singulair. - Previously discussed with Dr. Cruz at length. Recommend standing order for tryptase and Xolair. Discussed Xolair at length with patient, but he is not interested at this time. Educational handout given and he will continue to consider. As he has had no interval episodes, he continues to be uninterested in Xolair. - Encouraged to continue to take pictures and journal for triggers. - Geo is to return in 2 months for further evaluation and management 02/09/2025 Diarrhea, unspecified (ICD-10 - R19.7) As stated above. Today, again reporting his stomach feels more upset when nighttime dose of Pepcid is due. He was evaluated by Dr. Reveles, but no further workup was done and was given information on low histamine diet. He is interested in second opinion, which I am in agreement. 12/15/2024 Diarrhea, unspecified (ICD-10 - R19.7) As stated above. Today, reporting his stomach feels more upset when nighttime dose of Pepcid is due. Encouraged GI evaluation, which he is slated for in January. 11/18/2024 Diarrhea, unspecified (ICD-10 - R19.7) As stated above. 11/18/2024 Localized swelling, mass and lump, head (ICD-10 - R22.0) As stated above. 12/15/2024 Localized swelling, mass and lump, head (ICD-10 - R22.0) As stated above. 02/09/2025 Gastro-esophagea l reflux disease without esophagitis (ICD-10 - K21.9) Geo admits to a history of reflux, worse if he eats later in the evening and when lying down shortly after eating. He reports evaluation with Dr. Reveles in 01/2025, no EGD/colonscopy was done, but was given low histamine diet. He is interested in second opinion. - Encouraged toa void late-night eating, spicy foods, caffeine, chocolate and lying down after eating. - Recommend second opinion with GI for EGD/colonscopy. 02/09/2025 Localized swelling, mass and lump, head (ICD-10 - R22.0) As stated above. 11/18/2024 Shortness of breath (ICD-10 - R06.02) Geo reports occasional shortness of breath without exertion, worsened over the past month due to ongoing nasal congestion. He also feels he has had a potential cold over the past week due to feelings of needing to take a deep breath at times. He is concerned for sleep apnea as he snores nightly. He also feels he gasps for air. - Given history and symptoms, spirometry done today and showed normal FVC, FEV1, FEV%. FVL reproducible. Normal lung age. - Will trial Flonase for nasal congestion as stated below. - Recommend sleep study, per girlfriend he is scheduled to discuss with PCP at upcoming visit. - Consider ALLEGRA if no improvement at follow-up. - Upon further discussion, Geo denies lower airway symptoms. He feels his nasal congestion is making it mroe difficult to breath. He denies wheezing, chest tightness, cough. Denies fevers, lethargy or other constitutional symptoms. 12/15/2024 Shortness of breath (ICD-10 - R06.02) Geo [...] Consider ALLEGRA if no improvement at follow-up. 11/18/2024 Hypertrophy of nasal turbinates (ICD-10 - J34.3) Geo reports increased nasal congestion over the past month, otherwise denies all upper airway symptoms. Skin testing unable to be completed today due to Mariella use yesterday. - Will order ImmunoCaps to assess fo underlying atopic disease that may be priming Geo's immune system. - Will trial Flonase 2 sprays each nostril daily. Proper demonstration given. Encouraged nasal rinses as well. 12/15/2024 Hypertrophy of nasal turbinates (ICD-10 - J34.3) Geo reports increased nasal congestion over the past month, otherwise denies all upper airway symptoms. - ImmunoCaps ordered to assess for underlying atopic disease that may be priming Geo's immune system, negative to all aeroallergens. Total IgE 64. 02/09/2025 Shortness of breath (ICD-10 - R06.02) Geo [...] Consider ALLEGRA if no improvement at follow-up. 02/09/2025 Hypertrophy of nasal turbinates (ICD-10 - J34.3) Geo reports increased nasal congestion over the past month, otherwise denies all upper airway symptoms. - ImmunoCaps ordered to assess for underlying atopic disease that may be priming Adrian's immune system, negative to all aeroallergens. Total IgE 64. 12/15/2024 Chronic rhinitis (ICD-10 - J31.0) As stated above. 11/18/2024 Chronic rhinitis (ICD-10 - J31.0) As stated above. 02/09/2025 Chronic rhinitis (ICD-10 - J31.0) As stated above. 02/09/2025 Elevated blood-pressure reading, without diagnosis of hypertension (ICD-10 - R03.0) BP elevated today without symptoms of urgency or emergency. Continue serial checks and follow-up with PCP 01/19/2025 Other 11/18/2024 Other 12/15/2024 Other 02/09/2025 Other Plan Of Treatment Pending Test Test Name Order Date -Triiodothyronine (T3),Free,Serum 2024 -T4 and TSH 12/02/2024 -Chronic Urticaria -- Anti-IgE ([id number]) 12/02/2024 TRYPTASE 12/15/2024 Thyroglobulin Antibody 12/02/2024 Next Appt Details Provider Name:Amanda oden, 06/01/2025 03:30:00 PM, [address] [facility], [address], [place], [address], Insurance Providers Payer Name Payer Address Payer Phone Subscriber Number Group Number Insured Name Patient Relationship to Insured Coverage Start Date Coverage End Date [facility] [address] [address] [place] [address] [phone] [id number] [facility] Self - patient is the insured
--- OUTSIDE RECORDS SUMMARY | 2025-04-27 03:00 | XMS_ITS ---
Author Organization [facility] ([address]) Address [address] [place] [address] Care Team Providers Care Medical Assistant Ob Gyn Name Role Phone Emely Batista Primary Care Provider UnavailAmanda Willis Unavailable [phone] Moshe Cruz [phone] REASON FOR VISIT Anaphylaxis follow-up Encounters Encounter Location Date Provider Diagnosis [facility] [address] [place] [address] 04/21/2025 Moshe Cruz Plan Of Treatment Next Appt Details Provider Name:Amanda oden, 06/01/2025 03:30:00 PM, [address] [facility], [address], [place], [address], Progress Notes * Geo MARIEDOB:1990 (34 yo M)Acc No.[id number]:04/21/2025 Progress Notes Patient: Geo BELTRAN Provider: Jeffrey Cruz MD :1990 A ge:34 Y S ex:Male Date:04/21/2025 [facility] [facility] Pcp:Emely Batista Subjective: * Chief Complaints: * 1 . Anaphylaxis follow-up. * Medical History: Objective: * Vitals: Assessment: Plan: * Treatment: * Billing Information: * Visit Code: * Procedure Codes: * Electronic signature of Javi Cruz MD, FAAAAI on 04/27/2025 at 03:00 AM CDT Sign off status: Pending * Provider: Jeffrey Cruz MD Date: 04/21/2025 Generated for Anali gutierrez/Twan/Geovanna on: 04/27/2025 03:00 AM CDT
[2025-04-27 03:01] VITALS: BP 142/82; PULSE 89; RESP 18; TEMP 36.9; O2SAT 100
--- NOTE | 2025-04-27 03:06 | ED.ALLEREA ---
HPI - Allergic Reaction General Chief complaint: Allergic Reaction Stated complaint: possible allergic reaction Time Seen by Provider: 04/27/25 02:58 History of Present Illness HPI narrative: 34-year-old male with a history of recurrent allergic reactions who sees protection specialist. He presents to the emergency department after having a potential allergic reaction. Patient states that he woke up feeling some diffuse hives and urticaria as well as feeling nauseous and having 1 episode diarrhea. He felt significantly better after having the diarrhea but his dimpling machine operator informed them that he should go to the hospital for a tryptase level if he has a reaction like this. He did not uses epinephrine pen, is on prophylactic antihistamines and Pepcid at home. Has not had allergic reaction like this in 6 months. Does not identify any triggers, no new allergen exposures to his knowledge. Denies any throat closing sensation, difficulty breathing, sore throat, nausea, vomiting, shortness of breath, abdominal pain, back pain, diarrhea at this time. Related Data Allergies Allergy/AdvReac Type Severity Reaction Status Date / Time No Known Allergies Allergy Mild Verified 04/27/25 02:58 Review of Systems Review of Systems: As reviewed above in HPI Exam Narrative: GENERAL: [Well-appearing, well-nourished, and in no acute distress.] HEAD: [Normocephalic, atraumatic.] EYES: [PERRLA and EOMI.] ENT: Nares clear, no rhinorrhea or epistaxis. Mucous membranes moist. NECK: Supple. CHEST: [Clear to auscultation. No respiratory distress.] HEART: [Regular rate and rhythm]. No murmur heard. [Normal peripheral pulses.] ABDOMEN: [Soft, nondistended], [nontender], [No rigidity or guarding] EXTREMITIES: Normal range of motion. [No edema.] SKIN: Urticarial rash over the belly, bilateral arms, face and back. NEURO: [No focal deficits]. Alert and oriented [x3.] PSYCH: [Normal mood and affect.] Course Vital Signs Vital signs: Vital Signs Temperature 36.9 C 04/27/25 03:01 Pulse Rate 89 04/27/25 03:01 Respiratory Rate 18 04/27/25 03:01 Blood Pressure 142/82 H 04/27/25 03:01 Pulse Oximetry 100 04/27/25 03:01 Oxygen Delivery Room Air 04/27/25 03:01 Temperature 36.9 C 04/27/25 03:01 Pulse Rate 59 L 04/27/25 04:33 Respiratory Rate 18 04/27/25 04:33 Blood Pressure 101/60 04/27/25 04:33 Pulse Oximetry 100 04/27/25 04:33 Oxygen Delivery Room Air 04/27/25 03:01 MDM - Allergic Reaction MDM Narrative Medical decision making narrative: 34-year-old male with a history of recurrent allergic reactions usually manifesting as skin findings and GI upset. He sees an dimpling machine operator. Presents to the emergency department after having a reaction at home to some unknown substance or trigger. Endorses having bouts of diarrhea and nauseousness as well as diffuse urticarial rash. He states he feels significantly better at this time without any interventions but still has the urticarial rash but no other symptoms. Vital signs are reassuring, soft nontender nondistended abdomen, clear breath sounds. No signs of anaphylaxis at this time, no posterior pharyngeal swelling or erythema. No difficulty swallowing oral intake. Patient has a note from his dimpling machine operator with him that encouraged him to go to the ER to get a tryptase level if he has a reaction like this. This was ordered and he was given IV Solu-Medrol, diphenhydramine and Benadryl afterwards. Basic laboratory studies in addition and a fluid bolus provided he was observed for resolution of symptoms and likely can be safely discharged afterwards. Patient re-evaluated after medications and had improvement in his urticarial rash and no longer having any symptoms of allergic reaction. His vitals remained hemodynamically stable, felt improved and given his unremarkable laboratory studies and clinical improvement, I believe he can be safely discharged. He has an dimpling machine operator that he can follow closely with and they will be able to review his tryptase results outpatient. Patient has an epinephrine pen and knows signs and symptoms to watch out for as well as the return precautions we provided. Patient is safe for discharge at this time. Medical Records Attestation: I reviewed the patient's medical records. Lab Data Attestation: I reviewed the patient's lab results. 04/27/25 03:09 04/27/25 03:09 Labs: Lab Results 04/27/25 Range/Units 03:09 WBC 9.1 (4.5-10.0) K/mm3 RBC 5.55 (4.6-6.20) M/mm3 Hgb 14.7 (14.0-18.0) g/dL Hct 45.5 (42.0-52.0) % MCV 82.0 (80-100) fl MCH 26.5 (26-34) pg MCHC 32.3 (32-36) g/dl RDW 12.9 (11.5-14.5) % Plt Count 344 (150-375) k/mm3 MPV 9.1 (7.4-10.4) fl Immature Gran % (Auto) 0.5 (0-0.5) % Neut % (Auto) 49.7 (45.5-73.1) % Lymph % (Auto) 39.8 (18.3-44.2) % Redwood % (Auto) 8.1 (2.6-8.5) % Eos % (Auto) 1.6 (0-4.4) % Baso % (Auto) 0.3 (0.2-1.2) % Lymph # (Auto) 3.63 H (0.9-3.2) K/mm3 Redwood # (Auto) 0.7 H (0.1-0.6) K/mm3 Eos # (Auto) 0.2 (0-0.3) K/mm3 Baso # (Auto) 0.0 (0.0-0.1) K/mm3 Abs Immat Gran (auto) 0.05 H (0.00-0.031) K/mm3 Absolute Neuts (auto) 4.5 (1.3-6.7) K/mm3 Absolute Nucleated RBC 0.000 (0.0-0.012) K/mm3 Nucleated RBC % 0.0 (0.0-0.2) % Sodium 139 (137-145) mmol/L Potassium 3.4 (3.4-5.0) mmol/L Chloride 100 (98-107) mmol/L Carbon Dioxide 29 (22-30) mmol/L Anion Gap 10 (4-12) mmol/L BUN 15 (9-20) mg/dL Creatinine 1.01 (0.7-1.3) mg/dL Estim Creat Clear Calc 99 ml/min Estimated GFR > 60 (59 - ) Glucose 104 (65-110) mg/dL Calcium 9.2 (8.4-10.2) mg/dL Tryptase Pending Discharge Plan Discharge Clinical Impression: Allergic reaction Patient Disposition: Home Condition: Stable Instructions: Antibiotic Form, Allergies (ED) Additional Instructions: Follow-up with your dimpling machine operator regarding your presentation here to the emergency department. The tryptase laboratory study we sent will be able to be reviewed by her dimpling machine operator in the record. If you experience throat closing sensations, difficulty in breathing or signs of anaphylaxis take your epinephrine autoinjector and present to the nearest emergency department afterwards. Return with any new, worsening, or emergent concerns. Patient Language: Emir[place] Follow-up/Referrals: PHYSICIAN NOT ON STAFF,NONSTAFF [Primary Care Provider] - Time of Disposition: 04:21
[2025-04-27] MEDS: LACTATED RINGERS 1,000 ML 999 ML IV CONT (03:10)
[2025-04-27] MEDS: diphenhydrAMINE HCl INJ 50 MG/ML VIAL IV PUSH (03:11)
[2025-04-27] MEDS: methylPREDNISolone SOD SUCC 125 MG VIAL IV PUSH (03:11)
[2025-04-27] MEDS: FAMOTIDINE 20 MG/2 ML VIAL IV PUSH (03:11)
[2025-04-27 03:14] LABS: Basophils Percent Auto 0.3 % (0.2-1.2); Eosinophils Absolute Auto 0.2 K/mm3 (0-0.3); Eosinophils Percent Auto 1.6 % (0-4.4); Hematocrit 45.5 % (42.0-52.0); Hemoglobin 14.7 g/dL (14.0-18.0); Immature Granulocyte Absolute 0.05 K/mm3 (0.00-0.031); Immature Granulocyte Percent A 0.5 % (0-0.5); Lymphocytes Absolute Auto 3.63 K/mm3 (0.9-3.2); Lymphocytes Percent Auto 39.8 % (18.3-44.2); Mean Corpuscular HGB Conc 32.3 g/dl (32-36); Mean Corpuscular Hemoglobin 26.5 pg (26-34); Mean Platelet Volume 9.1 fl (7.4-10.4); Monocytes Absolute Auto 0.7 K/mm3 (0.1-0.6); Monocytes Percent Auto 8.1 % (2.6-8.5); Neutrophils Absolute Auto 4.5 K/mm3 (1.3-6.7); Neutrophils Percent Auto 49.7 % (45.5-73.1); Platelet Count Result 344 k/mm3 (150-375); Red Blood Count 5.55 M/mm3 (4.6-6.20); Red Cell Distribution Width 12.9 % (11.5-14.5); White Blood Count 9.1 K/mm3 (4.5-10.0)
[2025-04-27 03:30] LABS: Anion Gap 10 mmol/L (4-12); Blood Urea Nitrogen 15 mg/dL (9-20); Calcium 9.2 mg/dL (8.4-10.2); Carbon Dioxide 29 mmol/L (22-30); Chloride 100 mmol/L (98-107); Estimated CRCL calculation 99 ml/min; Estimated Glomerular Filt Rate > 60; Glucose 104 mg/dL (65-110); Potassium 3.4 mmol/L (3.4-5.0); Sodium 139 mmol/L (137-145)
[2025-04-27 04:33] VITALS: BP 101/60; PULSE 59; RESP 18; O2SAT 100
== END 2025-04-27 04:35 | disposition home or self-care (01) ==
PROVIDERS: Emergency Provider Student in an Organized Health Care Education/Training Program
DX: T78.40XA Allergy, unspecified, initial encounter (principal); X58.XXXA Exposure to other specified factors, initial encounter
CPT/HCPCS: 36415; 80048; 85025; 96361; 96374; 96375; 99284; J1200; J2919; J7120